=== PATIENT | male | born 1995 ===

== ENCOUNTER 2019-03-18 19:38 | Day surgery (SDC) | payer OTHER ==
[2019-03-18] MEDS: Lactated Ringers 1,000 ML IV SCH (16:54)
--- NOTE | 2019-03-18 17:39 | PCM.HP ---
H&P History of Present Illness - General Date of Service: 03/18/19 Admit Problem/Dx: Admission Diagnosis/Problem Admission Diagnosis/Problem Appendectomy Source of Information: Patient History Limitations: Reports: No Limitations - History of Present Illness Initial Comments - Free Text/Narative: Patient is a 23 year old male who presents with RLQ pain since this morning. He complains of sharp pain made worse with palpation. He has no appetite and last ate and drank last evening. He denies fevers but complains of chills. He has never had pain of this severity. He denies nausea or vomiting. He was seen at an OSH. His WBC was 15K. CT abdomen pelvis showed a 9mm appendix with inflammatory stranding and fluid. He was given ciprofloxacin and flagyl and transfered for surgical care. Right Lower Abdomen Pain Score (Numeric/FACES): 5 - Related Data Allergies/Adverse Reactions: Allergies Allergy/AdvReac Type Severity Reaction Status Date / Time No Known Allergies Allergy Verified 03/18/19 16:43 Home Medications: Home Meds . [No Known Home Meds] 03/18/19 [History] Past Medical History - Past Health History Medical/Surgical History: Denies Medical/Surgical History Social & Family History - Family History Family Medical History: Noncontributory - Tobacco Use Smoking Status *Q: Never Smoker Second Hand Smoke Exposure: Yes - Caffeine Use Caffeine Use: Reports: Coffee - Recreational Drug Use Recreational Drug Use: No H&P Review of Systems - Review of Systems: Review Of Systems: ROS reveals no pertinent complaints other than HPI. Exam - Exam Exam: See Below - Vital Signs Vital Signs: Last Vital Signs Temp 36.7 C 03/18/19 16:28 Pulse 112 H 03/18/19 16:28 Resp 18 03/18/19 16:28 BP 105/70 03/18/19 16:28 Pulse Ox 98 03/18/19 16:28 Weight: 83.28 kg - Exam General: Alert, Oriented, Sedated HEENT: Conjunctiva Clear, Mucosa Moist & [place], Posterior Pharynx Clear Neck: Supple, Trachea Midline Lungs: Clear to Auscultation, Normal Respiratory Effort Cardiovascular: Regular Rate, Tachycardia GI/Abdominal Exam: Soft, No Distention, No Mass, Guarding (RLQ), Rebound (RLQ), Tender (RLQ) Extremities: Normal Inspection - Problem List (1) Appendicitis SNOMED Code(s): 98767854 ICD Code: K37 - UNSPECIFIED APPENDICITIS Status: Acute Current Visit: Yes Problem List Initiated/Reviewed/Updated: Yes Orders Last 24hrs: Active Orders 24 hr Category Date Time Status Patient Status [ADT] Routine ADT 03/18/19 17:32 Ordered Oxygen Therapy [RC] PRN Care 03/18/19 17:32 Ordered RT Incentive Spirometry [RC] Q1HWA Care 03/18/19 17:32 Ordered Up ad Kortney [RC] ASDIRECTED Care 03/18/19 17:32 Ordered Verify Patient Consent Obtain [RC] ASDIRECTED Care 03/18/19 16:42 Active Vital Signs [RC] PER UNIT ROUTINE Care 03/18/19 17:32 Ordered Nothing Per Oral Diet [DIET] Diet 03/18/19 Dinner Ordered Acetaminophen/HYDROcodone [[place] 325-5 MG] Med 03/18/19 17:32 Ordered 2 tab PO Q4H PRN HYDROmorphone [Dilaudid] Med 03/18/19 17:32 Ordered 0.5 mg IVPUSH Q1H PRN Lactated Ringers [Ringers, Lactated] 1,000 ml Med 03/18/19 17:45 Ordered IV .BOLUS Lactated Ringers [Ringers, Lactated] 1,000 ml Med 03/18/19 16:45 Active IV Q8H Ondansetron [Zofran] Med 03/18/19 17:32 Ordered 4 mg IVPUSH Q6H PRN Piperacillin/Tazobactam [Piperacil-Tazobact] 3.375 gm Med 03/18/19 17:34 Ordered Sodium Chloride 0.9% [Normal Saline] 50 ml IV ONETIME Promethazine [Phenergan] Med 03/18/19 17:32 Ordered 12.5 mg IM Q6H PRN Sodium Chloride 0.9% [Normal Saline] Med 03/18/19 16:42 Active 10 ml IV ASDIRECTED PRN Sodium Chloride 0.9% [Saline Flush] Med 03/18/19 16:42 Active 10 ml FLUSH ASDIRECTED PRN Sodium Chloride 0.9% [Saline Flush] Med 03/18/19 16:42 Active 2.5 ml FLUSH ASDIRECTED PRN Medication Administration Instruction [OM.PC] Routine Oth 03/18/19 16:42 Ordered Peripheral IV Insertion Adult [OM.PC] Routine Oth 03/18/19 16:42 Ordered Resuscitation Status Routine Resus Stat 03/18/19 17:32 Ordered Medication Orders Lactated Ringer's (Ringers, Lactated) 1,000 mls @ 125 mls/hr IV Q8H TIMA Last Admin: 03/18/19 16:54 Dose: 125 mls/hr Sodium Chloride (Saline Flush) 10 ml FLUSH ASDIRECTED PRN PRN Reason: Keep Vein Open Sodium Chloride (Saline Flush) 2.5 ml FLUSH ASDIRECTED PRN PRN Reason: Keep Vein Open Sodium Chloride (Normal Saline) 10 ml IV ASDIRECTED PRN PRN Reason: IV Use Assessment/Plan Comment:: Patient and I discussed the pathophysiology of appendicis. I explained the need for an appendectomy. I explained the laparoscopic and possible open appendectomy. I explained the expected perioperative course and the risks including bleeding infection or damage to surrounding structures. He verbalized understanding and wishes to proceed. He is npo and will be given a 1L bolus of LR. I ordered zosyn to be given before the operation since he is due for a dose of flagyl now. This will give broad spectrum coverage.
--- NOTE | 2019-03-18 17:43 | PCM.PREANE ---
Preanesthetic Assessment - Anesthesia/Transfusion/Family Hx Anesthesia History: No Prior Anesthesia Family History of Anesthesia Reaction: No Transfusion History: No Prior Transfusion(s) - Review of Systems General: No Symptoms Pulmonary: No Symptoms Cardiovascular: No Symptoms Gastrointestinal: No Symptoms Neurological: No Symptoms Other: Reports: None - Physical Assessment NPO Status Date: 03/17/19 NPO Status Time: 20:00 O2 Sat by Pulse Oximetry: 98 Respiratory Rate: 18 Vital Signs: Last Vital Signs Temp 98.1 F 03/18/19 16:28 Pulse 112 H 03/18/19 16:28 Resp 18 03/18/19 16:28 BP 105/70 03/18/19 16:28 Pulse Ox 98 03/18/19 16:28 Height: 5 ft 4.96 in Weight: 83.28 kg ASA Class: 1E Mental Status: Alert & Oriented x3 Airway Class: Mallampati = 2 Dentition: Reports: Normal Dentition Thyro-Mental Finger Breadths: 3 Mouth Opening Finger Breadths: 3 ROM/Head Extension: Full Lungs: Clear to Auscultation, Normal Respiratory Effort Cardiovascular: Regular Rate, Regular Rhythm - Allergies Allergies/Adverse Reactions: Allergies Allergy/AdvReac Type Severity Reaction Status Date / Time No Known Allergies Allergy Verified 03/18/19 16:43 - Anesthesia Plan Free Text/Narrative:: [employer] translation services used for the entire patient exam. Pt expressed understanding and wishes to proceed at this time. CT scan from referring hospital shows acute appendicitis. - Acknowledgements Anesthesia Type Planned: General Anesthesia Pt an Appropriate Candidate for the Planned Anesthesia: Yes Alternatives and Risks of Anesthesia Discussed w Pt/Guardian: Yes Pt/Guardian Understands and Agrees with Anesthesia Plan: Yes PreAnesthesia Questionnaire - Past Health History Medical/Surgical History: Denies Medical/Surgical History HEENT History: Reports: None Cardiovascular History: Reports: None Respiratory History: Reports: None Gastrointestinal History: Reports: None Genitourinary History: Reports: None Musculoskeletal History: Reports: None Neurological History: Reports: None Psychiatric History: Reports: None Endocrine/Metabolic History: Reports: None Hematologic History: Reports: None Immunologic History: Reports: None Oncologic (Cancer) History: Reports: None Dermatologic History: Reports: None - Infectious Disease History Infectious Disease History: Reports: None - SUBSTANCE USE Smoking Status *Q: Never Smoker Second Hand Smoke Exposure: Yes Recreational Drug Use History: No - HOME MEDS Home Medications: Home Meds . [No Known Home Meds] 03/18/19 [History] - CURRENT (IN HOUSE) MEDS Current Meds: Current Medications Hydrocodone Bitart/Acetaminophen ([place] 325-5 Mg) 2 tab PO Q4H PRN PRN Reason: Pain (moderate 4-6) Hydromorphone HCl (Dilaudid) 0.5 mg IVPUSH Q1H PRN PRN Reason: Pain (severe 7-10) Lactated Ringer's (Ringers, Lactated) 1,000 mls @ 125 mls/hr IV Q8H TIMA Last Admin: 03/18/19 16:54 Dose: 125 mls/hr Piperacillin Sod/Tazobactam (Sod 3.375 gm/ Sodium Chloride) 50 mls @ 100 mls/ hr IV ONETIME ONE Stop: 03/18/19 18:03 Lactated Ringer's (Ringers, Lactated) 1,000 mls @ 999 mls/hr IV .BOLUS [facility]A Ondansetron HCl (Zofran) 4 mg IVPUSH Q6H PRN PRN Reason: Nausea/Vomiting Promethazine HCl (Phenergan) 12.5 mg IM Q6H PRN PRN Reason: Nausea Sodium Chloride (Saline Flush) 10 ml FLUSH ASDIRECTED PRN PRN Reason: Keep Vein Open Sodium Chloride (Saline Flush) 2.5 ml FLUSH ASDIRECTED PRN PRN Reason: Keep Vein Open Sodium Chloride (Normal Saline) 10 ml IV ASDIRECTED PRN PRN Reason: IV Use Discontinued Medications Fentanyl (Sublimaze) Confirm Administered Dose 250 mcg .ROUTE .STK-MED ONE Stop: 03/18/19 17:33 Lidocaine (Xylocaine-Mpf 2%) Confirm Administered Dose 5 ml .ROUTE .STK-MED ONE Stop: 03/18/19 17:33 Midazolam HCl (Versed 1 Mg/Ml) Confirm Administered Dose 2 mg .ROUTE .STK-MED ONE Stop: 03/18/19 17:33 Propofol (Diprivan 20 Ml) Confirm Administered Dose 200 mg .ROUTE .STK-MED ONE Stop: 03/18/19 17:33
--- NOTE | 2019-03-18 19:34 | PCM.OPNOTE ---
- General Post-Op/Procedure Note Date of Surgery/Procedure: 03/18/19 Operative Procedure(s): Laparoscopic appendectomy Findings: Inflamed and enlarged appendix with no signs of perforation Pre Op Diagnosis: Acute appendicitis Post-Op Diagnosis: Same Anesthesia Technique: General ET Tube Primary Surgeon: Tati Farnsworth Pathology: appendix Fluid Replacement, Intraop: 1,100 Output, Urine Amount: 300 EBL in mLs: 5 Condition: Good
[~2019-03-18 19:38] MED LIST: 50% Dextrose in Water 50 ML Syringe IVPUSH PRN; Acetaminophen/HYDROcodone 325-5 MG Tab PO PRN; Albuterol 0.083% 2.5 MG/3 ML Neb Soln NEB PRN; Atropine 0.1 MG/ML 10 ML Syringe IVPUSH PRN; Bupivacaine 0.5% 30 ML SDV ONE; EPINEPHrine 1:10,000 1 MG/10 ML Syringe IVPUSH PRN; HYDROmorphone 2 MG/ML Syringe IVPUSH PRN; Lactated Ringers 1,000 ML IV SCH; Lidocaine 2% 5 ML SDV ONE; Midazolam 1 MG/ML 2 ML SDV ONE; Naloxone 0.4 MG/ML Syringe IVPUSH PRN; Ondansetron 4 MG/2 ML SDV IVPUSH PRN; Phenylephrine/Normal Saline 100 MCG/ML 10 ML Syringe ONE; Piperacillin/Tazobactam 3.375 GM in Sodium Chloride 0.9% 50 ML IV ONE; Promethazine 25 MG/ML SDV IM PRN; Propofol 200 MG/20 ML SDV ONE; Rocuronium 100 MG/10 ML Syringe ONE; Sodium Chloride 0.9% 10 ML SDV IV PRN; Sodium Chloride 0.9% 10 ML Syringe FLUSH PRN; Sodium Chloride 0.9% 2.5 ML Syringe FLUSH PRN; fentaNYL 100 MCG/2 ML SDV IVPUSH PRN; fentaNYL 250 MCG/5 ML SDV ONE
--- NOTE | 2019-03-18 20:00 | PCM.POSTAN ---
POST ANESTHESIA ASSESSMENT - MENTAL STATUS Mental Status: Alert, Oriented - VITAL SIGNS Pulse Rate: 110 SaO2: 97 Resp Rate: 16 Blood Pressure: 134/79 - RESPIRATORY Respiratory Status: Respiratory Rate WNL, Airway Patent, O2 Saturation Stable - CARDIOVASCULAR CV Status: Pulse Rate WNL, Blood Pressure Stable - GASTROINTESTINAL GI Status: No Symptoms - PAIN Pain Score: 0 - POST OP HYDRATION Hydration Status: Adequate & Stable
[2019-03-19] MEDS: HYDROmorphone 1 MG/ML Syringe IVPUSH PRN ×2 (01:25→03:59)
[2019-03-19] MEDS: Acetaminophen/HYDROcodone 325-5 MG Tab PO PRN ×2 (01:36→08:39)
[2019-03-19] MEDS: Lactated Ringers 1,000 ML IV SCH ×2 (01:49→10:09)
--- NOTE | 2019-03-19 02:23 | OR ---
SURGEON: TIANNA GARCIA MD DATE OF PROCEDURE: 03/18/2019 PREOPERATIVE DIAGNOSIS: Acute appendicitis. POSTOPERATIVE DIAGNOSIS: Acute appendicitis. PROCEDURE PERFORMED: Laparoscopic appendectomy. ANESTHESIA: General endotracheal anesthesia. FLUIDS: 1100 mL crystalloid. ESTIMATED BLOOD LOSS: 5 mL. URINE OUTPUT: 300 mL. FINDINGS: Acutely inflamed and enlarged appendix with no signs of perforation. COMPLICATIONS: None. INDICATIONS: The patient is a 23-year-old male who presents with 1 day of right lower quadrant pain. He was found to have a leukocytosis of 15,000, and a CT of the abdomen and pelvis showed an enlarged and inflamed appearing appendix consistent with acute appendicitis. I explained the pathophysiology of appendicitis. I explained that the treatment is appendectomy. We discussed the laparoscopic approach. Should I be unable to perform it safely, I would convert to open. I explained the procedure and the expected perioperative course, and the risks including bleeding, infection, or damage to surrounding structures. He verbalized understanding and wishes to proceed. PROCEDURE IN DETAIL: The patient was brought into the OR and placed on the OR table in supine position. A time-out was completed verifying the patient's name, age, date of , allergies, and the procedure to be performed. General endotracheal anesthesia was induced. The left arm was tucked at the patient's side and a Gray catheter placed. The abdomen was prepped and draped in usual standard fashion. I anesthetized an area 2 fingerbreadths below the left subcostal margin in the midclavicular line with 0.5% Marcaine plain. An 11-blade was used to make a 1 cm incision over this area. A 5 mm optical trocar was used to gain entry into the left upper quadrant under direct visualization. The abdomen was insufflated, and a 5 mm 30-degree scope was inserted into the abdomen. No damage to surrounding structures was noted. A 5 mm trocar was placed under direct visualization just left and lateral of the umbilicus. A 12 mm trocar was placed in similar fashion in the left lower quadrant. The patient was placed into Trendelenburg position and airplaned to the left. I then turned my attention to the right lower quadrant. Adhered to the anterior abdominal wall was an inflamed and enlarged appendix consistent with acute appendicitis. The appendix had a small amount of exudate on the outside, but there was no evidence of any perforation. The wispy attachments to the anterior abdominal wall were taken down with suction and the base of the appendix identified inserting upon the cecum. A Harmonic device was then used to take down the appendiceal mesentery from distal to proximal, taking great care to avoid any surrounding structures. Once the base of the appendix was completely cleared off, I brought an endoscopic stapling device into the field. I then stapled and transected across the base of the appendix using a 45 mm blue load of jensen. The appendix was placed in an EndoCatch bag and removed through the 12 mm port site in the left lower quadrant. The port was replaced and I inspected my operative field. It appeared to be hemostatic. I suctioned the edematous fluid from around the operative site. I then irrigated it with 200 mL of normal saline and suctioned this out. I then removed the 12 mm trocar and closed the fascia at the site using an interrupted 0 Vicryl suture using a Tunde-Dipti device. The 5 mm trocars were removed under direct visualization. The abdomen allowed to desufflate. The subcutaneous fat layer at the 12 mm port site was closed with interrupted 3-0 Vicryl sutures. The skin was closed with a running 4-0 Monocryl stitch. The 5 mm trocar sites were closed with interrupted 4-0 Monocryl sutures. Steri-Strips and sterile dressings were applied. The patient tolerated the procedure well and was transferred to the PACU in stable condition. All counts were complete and correct at the end of the case. JUSTINE BELLO /[id number]
--- NOTE | 2019-03-19 09:51 | PCM.SURGPN ---
- General Info Date of Service: 03/19/19 Date of Surgery/Procedure: 03/18/19 POD#: 1 Functional Status: Reports: Pain Controlled, Tolerating Diet, Ambulating, Urinating - Review of Systems General: Reports: No Symptoms Pulmonary: Reports: No Symptoms Cardiovascular: Reports: No Symptoms Gastrointestinal: Reports: No Symptoms - Patient Data Vitals - Most Recent: Last Vital Signs Temp 36.8 C 03/19/19 07:45 Pulse 78 03/19/19 07:45 Resp 18 03/19/19 07:45 BP 109/55 L 03/19/19 07:45 Pulse Ox 97 03/19/19 07:45 Weight - Most Recent: 83.28 kg I&O - Last 24 Hours: Intake & Output 03/18/19 03/19/19 03/19/19 22:59 06:59 14:59 Intake Total 2400 480 Output Total 600 900 Balance 1800 -420 Med Orders - Current: Current Medications Hydrocodone Bitart/Acetaminophen ([place] 325-5 Mg) 2 tab PO Q4H PRN PRN Reason: Abdominal Pain Last Admin: 03/19/19 08:39 Dose: 2 tab Albuterol (Proventil Neb Soln) 2.5 mg NEB ONETIME PRN PRN Reason: Wheezing Atropine Sulfate (Atropine 0.1 Mg/Ml) 0.5 mg IVPUSH ASDIRECTED PRN PRN Reason: Hypo-perfusion Atropine Sulfate (Atropine 0.1 Mg/Ml) 1 mg IVPUSH ASDIRECTED PRN PRN Reason: Hypo-Perfusion Dextrose/Water (Dextrose 50% In Water) 50 ml IVPUSH ASDIRECTED PRN PRN Reason: Hypoglycemia Epinephrine HCl (Epinephrine 1:10,000) 1 mg IVPUSH ASDIRECTED PRN PRN Reason: ACLS Guidelines Fentanyl (Sublimaze) 50 - 100 mcg IVPUSH Q5M PRN PRN Reason: Pain Hydromorphone HCl (Dilaudid) 0.5 mg IVPUSH Q1H PRN PRN Reason: Abdominal Pain Last Admin: 03/19/19 03:59 Dose: 0.5 mg Lactated Ringer's (Ringers, Lactated) 1,000 mls @ 125 mls/hr IV Q8H TIMA Last Admin: 03/19/19 01:49 Dose: 125 mls/hr Lactated Ringer's (Ringers, Lactated) 1,000 mls @ 999 mls/hr IV .BOLUS TIMA Last Admin: 03/18/19 17:50 Dose: 999 mls/hr Naloxone HCl (Narcan) 0.1 mg IVPUSH ASDIRECTED PRN PRN Reason: Respiratory Depression Ondansetron HCl (Zofran) 4 mg IVPUSH Q6H PRN PRN Reason: Nausea/Vomiting Promethazine HCl (Phenergan) 12.5 mg IM Q6H PRN PRN Reason: Nausea Sodium Chloride (Saline Flush) 10 ml FLUSH ASDIRECTED PRN PRN Reason: Keep Vein Open Sodium Chloride (Saline Flush) 2.5 ml FLUSH ASDIRECTED PRN PRN Reason: Keep Vein Open Sodium Chloride (Normal Saline) 10 ml IV ASDIRECTED PRN PRN Reason: IV Use Discontinued Medications Hydrocodone Bitart/Acetaminophen ([place] 325-5 Mg) 2 tab PO Q4H PRN PRN Reason: Pain (moderate 4-6) Bupivacaine HCl ([place] 0.5%) Confirm Administered Dose 30 ml .ROUTE .STK-MED ONE Stop: 03/18/19 18:07 Fentanyl (Sublimaze) Confirm Administered Dose 250 mcg .ROUTE .STK-MED ONE Stop: 03/18/19 17:33 Hydromorphone HCl (Dilaudid) 0.5 mg IVPUSH Q1H PRN PRN Reason: Pain (severe 7-10) Last Admin: 03/18/19 17:55 Dose: 0.5 mg Piperacillin Sod/Tazobactam (Sod 3.375 gm/ Sodium Chloride) 50 mls @ 100 mls/ hr IV ONETIME ONE Stop: 03/18/19 18:03 Last Admin: 03/18/19 17:50 Dose: 100 mls/hr Lidocaine (Xylocaine-Mpf 2%) Confirm Administered Dose 5 ml .ROUTE .STK-MED ONE Stop: 03/18/19 17:33 Midazolam HCl (Versed 1 Mg/Ml) Confirm Administered Dose 2 mg .ROUTE .STK-MED ONE Stop: 03/18/19 17:33 Phenylephrine HCl (Phenylephrine In Ns 100 Mcg/Ml) Confirm Administered Dose 1 mg .ROUTE .STK-MED ONE Stop: 03/18/19 19:03 Propofol (Diprivan 20 Ml) Confirm Administered Dose 200 mg .ROUTE .STK-MED ONE Stop: 03/18/19 17:33 Rocuronium [place] (Zemuron) Confirm Administered Dose 100 mg .ROUTE .STK-MED ONE Stop: 03/18/19 19:03 - Exam Wound/Incisions: Healing Well, Drainage (serosanguinous drainage on dressings. ) General: Alert, Oriented, Cooperative Lungs: Normal Respiratory Effort Cardiovascular: Regular Rate GI/Abdominal Exam: Soft, Non-Tender, No Distention, No Mass Skin: Warm, Dry, Intact - Problem List & Annotations (1) Appendicitis SNOMED Code(s): 69298958 Code(s): K37 - UNSPECIFIED APPENDICITIS Status: Acute Current Visit: No - Problem List Review Problem List Initiated/Reviewed/Updated: Yes - My Orders Last 24 Hours: Active Orders 24 hr Category Date Time Status Patient Status [ADT] Routine ADT 03/18/19 17:32 Active Blood Glucose Check, Bedside [RC] PRN Care 03/18/19 19:07 Active Notify Provider Vital Signs [RC] ASDIRECTED Care 03/18/19 19:07 Active Oxygen Therapy [RC] PRN Care 03/18/19 17:32 Active Oxygen Therapy [RC] PRN Care 03/18/19 19:07 Active RT Incentive Spirometry [RC] Q1HWA Care 03/18/19 17:32 Active Ready for Discharge [RC] PER UNIT ROUTINE Care 03/19/19 09:14 Active Up ad Kortney [RC] ASDIRECTED Care 03/18/19 17:32 Active Vital Signs [RC] Q4H Care 03/18/19 19:07 Active Regular Diet [DIET] Diet 03/19/19 Breakfast Active Acetaminophen/HYDROcodone [[place] 325-5 MG] Med 03/18/19 19:37 Active 2 tab PO Q4H PRN Albuterol [Proventil Neb Soln] Med 03/18/19 19:07 Active 2.5 mg NEB ONETIME PRN Atropine [Atropine 0.1 MG/ML] Med 03/18/19 19:07 Active 0.5 mg IVPUSH ASDIRECTED PRN Atropine [Atropine 0.1 MG/ML] Med 03/18/19 19:07 Active 1 mg IVPUSH ASDIRECTED PRN Dextrose 50% in Water Med 03/18/19 19:07 Active 50 ml IVPUSH ASDIRECTED PRN EPINEPHrine [EPINEPHrine 1:10,000] Med 03/18/19 19:07 Active 1 mg IVPUSH ASDIRECTED PRN HYDROmorphone [Dilaudid] Med 03/18/19 19:37 Active 0.5 mg IVPUSH Q1H PRN Lactated Ringers [Ringers, Lactated] 1,000 ml Med 03/18/19 17:45 Active IV .BOLUS Lactated Ringers [Ringers, Lactated] 1,000 ml Med 03/18/19 16:45 Active IV Q8H Naloxone [Narcan] Med 03/18/19 19:07 Active 0.1 mg IVPUSH ASDIRECTED PRN Ondansetron [Zofran] Med 03/18/19 17:32 Active 4 mg IVPUSH Q6H PRN Promethazine [Phenergan] Med 03/18/19 17:32 Active 12.5 mg IM Q6H PRN Sodium Chloride 0.9% [Normal Saline] Med 03/18/19 16:42 Active 10 ml IV ASDIRECTED PRN Sodium Chloride 0.9% [Saline Flush] Med 03/18/19 16:42 Active 10 ml FLUSH ASDIRECTED PRN Sodium Chloride 0.9% [Saline Flush] Med 03/18/19 16:42 Active 2.5 ml FLUSH ASDIRECTED PRN fentaNYL [Sublimaze] Med 03/18/19 19:07 Active 50 - 100 mcg IVPUSH Q5M PRN Medication Administration Instruction [OM.PC] Routine Oth 03/18/19 16:42 Ordered Peripheral IV Insertion Adult [OM.PC] Routine Oth 03/18/19 16:42 Ordered Resuscitation Status Routine Resus Stat 03/18/19 17:32 Ordered Medication Orders Hydrocodone Bitart/Acetaminophen ([place] 325-5 Mg) 2 tab PO Q4H PRN PRN Reason: Abdominal Pain Last Admin: 03/19/19 08:39 Dose: 2 tab Admin: 03/19/19 01:36 Dose: 2 tab Albuterol (Proventil Neb Soln) 2.5 mg NEB ONETIME PRN PRN Reason: Wheezing Atropine Sulfate (Atropine 0.1 Mg/Ml) 0.5 mg IVPUSH ASDIRECTED PRN PRN Reason: Hypo-perfusion Atropine Sulfate (Atropine 0.1 Mg/Ml) 1 mg IVPUSH ASDIRECTED PRN PRN Reason: Hypo-Perfusion Dextrose/Water (Dextrose 50% In Water) 50 ml IVPUSH ASDIRECTED PRN PRN Reason: Hypoglycemia Epinephrine HCl (Epinephrine 1:10,000) 1 mg IVPUSH ASDIRECTED PRN PRN Reason: ACLS Guidelines Fentanyl (Sublimaze) 50 - 100 mcg IVPUSH Q5M PRN PRN Reason: Pain Hydromorphone HCl (Dilaudid) 0.5 mg IVPUSH Q1H PRN PRN Reason: Abdominal Pain Last Admin: 03/19/19 03:59 Dose: 0.5 mg Admin: 03/19/19 01:25 Dose: 0.5 mg Lactated Ringer's (Ringers, Lactated) 1,000 mls @ 125 mls/hr IV Q8H TIMA Last Admin: 03/19/19 01:49 Dose: 125 mls/hr Infusion: 03/19/19 00:54 Dose: 125 mls/hr Admin: 03/18/19 16:54 Dose: 125 mls/hr Lactated Ringer's (Ringers, Lactated) 1,000 mls @ 999 mls/hr IV [facility] Last Admin: 03/18/19 17:50 Dose: 999 mls/hr Naloxone HCl (Narcan) 0.1 mg IVPUSH ASDIRECTED PRN PRN Reason: Respiratory Depression Ondansetron HCl (Zofran) 4 mg IVPUSH Q6H PRN PRN Reason: Nausea/Vomiting Promethazine HCl (Phenergan) 12.5 mg IM Q6H PRN PRN Reason: Nausea Sodium Chloride (Saline Flush) 10 ml FLUSH ASDIRECTED PRN PRN Reason: Keep Vein Open Sodium Chloride (Saline Flush) 2.5 ml FLUSH ASDIRECTED PRN PRN Reason: Keep Vein Open Sodium Chloride (Normal Saline) 10 ml IV ASDIRECTED PRN PRN Reason: IV Use - Plan Plan (Free Text/Narrative):: Patient is doing well status post appendectomy. He is cleared for discharge. Using a barrel centerer I went over all the post operative instructions.
--- NOTE | 2019-03-19 11:32 | PCM48HPAN ---
Post Anesthesia Note - EVALUATION WITHIN 48HRS OF ANESTHETIC Vital Signs in Normal Range: Yes Patient Participated in Evaluation: Yes Respiratory Function Stable: Yes Airway Patent: Yes Cardiovascular Function Stable: Yes Hydration Status Stable: Yes Pain Control Satisfactory: Yes Nausea and Vomiting Control Satisfactory: Yes Mental Status Recovered: Yes
== END 2019-03-19 13:40 | disposition home or self-care (01) ==
LOC: MW.SDS 19:38 → MW.MS 19:45 → MW.SDS 03-19 13:40
PROVIDERS: ATTEND Surgery
DX: K35.80 Unspecified acute appendicitis (principal)
CPT/HCPCS: 44970; 88304; A9270; J1170; J2001; J2250; J2370; J2543; J2704; J3010; J3490; J7050; J7120; 00840